=== PATIENT | male | born 2000 | race Caucasian/White ===

== ENCOUNTER 2023-04-08 03:44 | Emergency (ER) | payer SELFPAY ==
[2023-04-08] MEDS ORDERED: Ibuprofen 600 MG Tab PO ONE (04:49)
[2023-04-08] MEDS ORDERED: Acetaminophen/HYDROcodone 325-10 MG Tab PO ONE (04:49)
== END 2023-04-08 06:48 | disposition home or self-care (01) ==
LOC: MW.ED 03:44
DX: S62.396A Other fracture of fifth metacarpal bone, right hand, initial encounter for closed fracture (principal); S90.31XA Contusion of right foot, initial encounter; Y04.0XXA Assault by unarmed brawl or fight, initial encounter
CPT/HCPCS: 26605; 73120; 73130; 73610; 73630; 99283; A9270